=== PATIENT | female | born 2005 | race Caucasian/White ===

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

== ENCOUNTER 2025-01-26 19:29 | Emergency (ER) | payer OTHER ==
[2025-01-26 19:33] VITALS: BP 109/77; PULSE 72; RESP 20; TEMP 97.9; BMI 26.5
[2025-01-26] MEDS: IBUPROFEN 600 MG TABLET (FP) PO ONE (19:55)
== END 2025-01-26 20:09 | disposition home or self-care (01) ==
LOC: JERFT 19:29
DX: S93.691A Other sprain of right foot, initial encounter (principal); W01.0XXA Fall on same level from slipping, tripping and stumbling without subsequent striking against object, initial encounter; Y93.01 Activity, walking, marching and hiking
CPT/HCPCS: 73610-TC-RT-FY; 73630-TC-RT-FY; 99283-25